=== PATIENT | female | born 1960 ===

== ENCOUNTER → 2017-10-26 | Outpatient (CLI) | payer OTHER | END | disposition home or self-care (01) | LOC: MAMO-SONO 09:52 | DX: Z12.31 Encounter for screening mammogram for malignant neoplasm of breast (principal); Z86.018 Personal history of other benign neoplasm ==

== ENCOUNTER → 2017-11-18 | Outpatient (CLI) | payer OTHER | END | disposition home or self-care (01) | LOC: TOM 08:30 | DX: N20.0 Calculus of kidney (principal); N20.1 Calculus of ureter; R10.84 Generalized abdominal pain; R63.4 Abnormal weight loss ==